=== PATIENT | male | born 1945 | race Caucasian/White ===

== ENCOUNTER 2017-11-26 10:13 | Emergency (ER) | payer OTHER ==
[2017-11-26 11:00] LABS: #Eosinphils 0.1 thou/uL (0.0-0.7); #Lymphocytes 0.9 thou/uL (1.20-3.40); #Monocytes 1.1 thou/uL (0.11-0.59); #Neutrophils 10.9 thou/uL (1.40-6.50); %Eosinophils 0.4 % (0.0-10.0); %Lymphocytes 7.1 % (21.0-51.0); %Monocytes 8.4 % (0.0-10.0); Hemoglobin 11.5 g/dL (14.0-18.0); Mean Corpuscular HGB CONC 30.5 g/dL (32.0-36.0); Mean Corpuscular Hemoglobin 28.7 pg (27.0-31.0); Mean Corpuscular Volume 94.1 fL (78.0-98.0); Mean Platelet Volume 6.8 fL (7.4-10.4); Platelet Count 319 thou/uL (130-400); Red Blood Cell (RBC) Count 4.02 mill/uL (4.70-6.10)
[2017-11-26 11:20] LABS: ALT (SGPT) 33 U/L (8-55); AST (SGOT) 27 U/L (5-34); Albumin 3.8 g/dL (3.4-4.8); Alkaline Phosphatase 66 U/L (40-150); Anion Gap 10 mmol/L (10-20); BUN (Urea Nitrogen) 21 mg/dL (8.4-25.7); Bilirubin, Total 0.5 mg/dL (0.2-1.2); Calc. Creatinine Clearance 0 mL/min (70-130); Calcium 8.5 mg/dL (7.8-10.44); Carbon Dioxide 28 mmol/L (23-31); Chloride 102 mmol/L (98-107); Estimated GFR-MDRD 78; Globulin 2.9 g/dL (2.4-3.5); Glucose 171 mg/dL (83-110); Potassium 5.5 mmol/L (3.5-5.1); Protein, Total 6.7 g/dL (5.8-8.1); Sodium 134 mmol/L (136-145)
[2017-11-26 11:25] LABS: Troponin I Less than 0.010 ng/mL (< 0.028)
[2017-11-26 11:29] LABS: CKMB 7.7 ng/mL (0-6.6)
--- NOTE | 2017-11-26 11:43 | RAD ---
1 VIEW CHEST: Date: 11/26/17 HISTORY: Dyspnea. COMPARISON: None. FINDINGS: There is cardiomegaly, pulmonary vascular congestion, and interstitial/alveolar opacities. Small bila teral pleural effusions suspected. No pneumothorax. IMPRESSION: Congestive heart failure. POS: [facility]
[2017-11-26] MEDS ORDERED: methylPREDNISolone Sod Succ/PF 125 MG/2 ML VIAL ONE (13:43)
[2017-11-26 14:22] LABS: Actual Bicarbonate (HCO3a) 31.4 mEq/L (22-28); Analyzer IN Cardio ER; Base Excess (BEa) 3.2 mEq/L (-2.0 to +3.0); Calcium, Ionized 1.19 mmol/L (1.12-1.30); Carboxyhemoglobin (COHb) 0.7 gm% (0.0-3.0); Hemoglobin (Hb) 12.3 g/dL (14.0-18.0); O2 Tension (PaO2) 80.8 mmHg (> 70.0); Potassium - ABG Lab 4.83 mmol/L (3.70-5.30); pH, Arterial 7.29 (7.35-7.45)
[2017-11-26 14:25] LABS: ALV-art Gradient 92.755 (0-20); CO2 Tension 66.5 mmHg (35.0-45.0); Puncture Site RRA
[2017-11-26] MEDS ORDERED: Albuterol Sulfate 2.5 mg/3 ml Neb ONE (15:50)
[2017-11-26] MEDS ORDERED: Furosemide 40 MG/4 ML VIAL ONE (16:45)
[2017-11-26] MEDS ORDERED: Furosemide 20 MG/2 ML VIAL ONE (16:45)
== END 2017-11-26 18:39 | disposition short-term general hospital (02) ==
LOC: ERS 10:13
DX: J96.10 Chronic respiratory failure, unspecified whether with hypoxia or hypercapnia (principal); I11.0 Hypertensive heart disease with heart failure; I50.9 Heart failure, unspecified; E11.10 Type 2 diabetes mellitus with ketoacidosis without coma; E78.5 Hyperlipidemia, unspecified; Z79.899 Other long term (current) drug therapy; Z79.82 Long term (current) use of aspirin; Z79.4 Long term (current) use of insulin
CPT/HCPCS: 51702; 71045; 80053; 82553; 82805; 83880; 84484; 85025; 93005; 94640; 96374; 96375; J1940; J2930; J7611; J7620